=== PATIENT | female | born 1970 | race Caucasian/White ===

== ENCOUNTER 2018-01-07 15:35 | Emergency (ER) | payer MEDICARE ==
[2018-01-07 15:52] VITALS: BP 128/79
--- NOTE | 2018-01-07 17:35 | EDM.PDOC ---
ED HPI GENERAL MEDICAL PROBLEM - General Chief Complaint: [employer] Problem Stated Complaint: PASSING BLOOD CLOTS Time Seen by Provider: 01/07/18 17:06 Source of Information: Reports: Patient History Limitations: Reports: No Limitations - History of Present Illness INITIAL COMMENTS - FREE TEXT/NARRATIVE: Reporting a three-week history of vaginal bleeding with clots. Patient states that her period started on December 19 and continued on for 2 weeks until January 02 when it slowed. She had a couple of days of spotting and then the bleeding continued and today was very heavy going to 7 tampons and still running through at the time of presentation. She is sexually active not on control. Her last delivery was 5-1/2 years ago and since that time her periods have been regular. She reports some cramping. No dysuria, abdominal pain, lightheadedness. She has had quite a bit of night sweats and increased moodiness of late. pelvic Pain Score (Numeric/FACES): 4 - Related Data Allergies Allergy/AdvReac Type Severity Reaction Status Date / Time Tetanus Vaccines and Toxoid Allergy Swelling Verified 01/07/18 15:52 [Tetanus Vaccines & Toxoid] tolterodine tartrate Allergy Rash Verified 01/07/18 15:52 [From Detrol] morphine Allergy Vomiting Uncoded 01/07/18 15:52 Home Meds: Home Meds azaTHIOprine [Azathioprine] 100 mg PO DAILY 05/31/15 [History] medroxyPROGESTERone [Provera] 10 mg PO DAILY #10 tab 01/07/18 [Rx] Past Medical History HEENT History: Reports: Impaired Vision Gastrointestinal History: Reports: Other (See Below) Other Gastrointestinal History: Chrohns Genitourinary History: Reports: Urinary Incontinence Neurological History: Reports: Migraines Other Oncologic History: precancerous cells in cervix Dermatologic History: Reports: Eczema Other Dermatologic History: mild ezcema - Past Surgical History GI Surgical History: Reports: Appendectomy, Other (See Below) Other GI Surgeries/Procedures: Bowel Resection Other Female Surgeries/Procedures: laser conization Musculoskeletal Surgical History: Reports: Other (See Below) Other Musculoskeletal Surgeries/Procedures:: Lumbar Fusion L5S1 Social & Family History - Family History Family Medical History: Noncontributory - Tobacco Use Smoking Status *Q: Never Smoker Used Tobacco, but Quit: Yes Month/Year Tobacco Last Used: Jun 2114 Second Hand Smoke Exposure: No - Caffeine Use Caffeine Use: Reports: Coffee, Soda - Alcohol Use Days Per Week of Alcohol Use: 0 - Recreational Drug Use Recreational Drug Use: No ED ROS GENERAL - Review of Systems Review Of Systems: ROS reveals no pertinent complaints other than HPI. ED EXAM, GI/ABD - Physical Exam Exam: See Below Exam Limited By: No Limitations General Appearance: Alert, No Apparent Distress Ears: Normal External Exam Nose: Normal Inspection Throat/Mouth: Normal Inspection Head: Atraumatic, Normocephalic Neck: Normal Inspection Respiratory/Chest: No Respiratory Distress, Lungs Clear, Normal Breath Sounds, No Accessory Muscle Use Cardiovascular: Normal Peripheral Pulses, Regular Rate, Rhythm, No Murmur GI/Abdominal Exam: Soft, No Distention, Other (Pelvic tenderness) Back Exam: Normal Inspection Extremities: Normal Inspection Neurological: Alert, Oriented Psychiatric: Normal Affect, Normal Mood Skin Exam: Warm, Dry, Intact, Normal Color, No Rash Lymphatic: No Adenopathy Course - Vital Signs Last Recorded V/S: Last Vital Signs Temp 36.3 C 01/07/18 15:48 Pulse 78 01/07/18 15:48 Resp 16 01/07/18 15:48 BP 128/79 01/07/18 15:48 Pulse Ox 98 01/07/18 15:48 - Orders/Labs/Meds Orders: Active Orders 24 hr Category Date Time Status HCG QUALITATIVE,URINE [URCHEM] Stat Lab 01/07/18 17:27 Ordered UA W/MICROSCOPIC [URIN] Stat Lab 01/07/18 17:23 Ordered Labs: Laboratory Tests 01/07/18 01/07/18 01/07/18 Range/Units 17:23 17:27 17:31 WBC 7.40 (4.0-11.0) K/uL RBC 4.26 L (4.30-5.90) M/uL Hgb 12.3 (12.0-16.0) g/dL Hct 36.4 (36.0-46.0) % MCV 85.4 (80.0-98.0) fL MCH 28.9 (27.0-32.0) pg MCHC 33.8 (31.0-37.0) g/dL RDW Std Deviation 43.7 (28.0-62.0) fl RDW Coeff of Eldon 14 (11.0-15.0) % Plt Count 249 (150-400) K/uL MPV 10.00 (7.40-12.00) fL Neut % (Auto) 71.5 (48.0-80.0) % Lymph % (Auto) 21.8 (16.0-40.0) % Brule % (Auto) 5.8 (0.0-15.0) % Eos % (Auto) 0.8 (0.0-7.0) % Baso % (Auto) 0.1 (0.0-1.5) % Neut # (Auto) 5.3 (1.4-5.7) K/uL Lymph # (Auto) 1.6 (0.6-2.4) K/uL Brule # (Auto) 0.4 (0.0-0.8) K/uL Eos # (Auto) 0.1 (0.0-0.7) K/uL Baso # (Auto) 0.0 (0.0-0.1) K/uL Nucleated RBC % 0.0 /100WBC Nucleated RBCs # 0 K/uL Urine Color YELLOW Urine Appearance CLEAR Urine pH 6.0 (5.0-8.0) Ur Specific [place] 1.020 (1.001-1.035) Urine Protein NEGATIVE (NEGATIVE) mg/dL Urine Glucose (UA) NEGATIVE (NEGATIVE) mg/dL Urine Ketones NEGATIVE (NEGATIVE) mg/dL Urine Occult Blood MODERATE (NEGATIVE) Urine Nitrite NEGATIVE (NEGATIVE) Urine Bilirubin NEGATIVE (NEGATIVE) Urine Urobilinogen 0.2 (<2.0) EU/dL Ur Leukocyte Esterase NEGATIVE (NEGATIVE) Urine RBC 0-1 (0-2/HPF) Urine WBC 0-1 (0-5/HPF) Ur Epithelial Cells OCCASIONAL (NONE-FEW) Urine Bacteria RARE (NEGATIVE) Urine HCG, Qual NEGATIVE (NEGATIVE) Departure - Departure Time of Disposition: 18:19 Disposition: Home, Self-Care 01 Condition: Good Clinical Impression: Abnormal uterine bleeding - Discharge Information Prescriptions: medroxyPROGESTERone [Provera] 10 mg PO DAILY #10 tab Referrals: PCP,Unknown [Primary Care Provider] - Forms: ED Department Discharge Additional Instructions: 1. Follow-up in gynecology on as previously scheduled 2. Take her Provera once daily starting today
== END 2018-01-07 18:30 | disposition home or self-care (01) ==
LOC: MW.ED 15:35
DX: N93.9 Abnormal uterine and vaginal bleeding, unspecified (principal); Z88.5 Allergy status to narcotic agent; Z88.8 Allergy status to other drugs, medicaments and biological substances; Z88.7 Allergy status to serum and vaccine; Z79.899 Other long term (current) drug therapy; Z87.891 Personal history of nicotine dependence
CPT/HCPCS: 36415; 81001; 81025; 85025; 99283

== ENCOUNTER 2018-12-12 21:27 | Emergency (ER) | payer MEDICARE ==
--- NOTE | 2018-12-12 21:29 | EDM.PDOC ---
ED HPI GENERAL MEDICAL PROBLEM - General Stated Complaint: BIG TOE ON LT FOOT HURTS Time Seen by Provider: 12/12/18 21:29 Source of Information: Reports: Patient - History of Present Illness INITIAL COMMENTS - FREE TEXT/NARRATIVE: HISTORY AND PHYSICAL: History of present illness: [Patient presents with complaint of toe pain after a picture fell off the wall landing on her right great toe pain is 5 out of 10 nonradiating there is bruising over the dorsum of the toe no fever nausea vomiting chills sweats no other injury per parient ] Review of systems: As per history of present illness and below otherwise all systems reviewed and negative. Past medical history: As per history of present illness and as reviewed below otherwise noncontributory. Surgical history: As per history of present illness and as reviewed below otherwise noncontributory. Social history: No reported history of drug or alcohol abuse. Family history: As per history of present illness and as reviewed below otherwise noncontributory. Physical exam: HEENT: Atraumatic, normocephalic, pupils reactive, negative for conjunctival pallor or scleral icterus, mucous membranes moist, throat clear, neck supple, nontender, trachea midline. Lungs: Clear to auscultation, breath sounds equal bilaterally, chest nontender. Heart: S1S2, regular, negative for clicks, rubs, or JVD. Abdomen: Soft, nondistended, nontender. Negative for masses or hepatosplenomegaly. Negative for costovertebral tenderness. Pelvis: Stable nontender. Genitourinary: Deferred. Rectal: Deferred. Extremities: Atraumatic, negative for cords or calf pain. Neurovascular unremarkable. Neuro: Awake, alert, oriented. Cranial nerves II through XII unremarkable. Cerebellum unremarkable. Motor and sensory unremarkable throughout. Exam nonfocal. Diagnostics: [Plain film right great toe] Therapeutics: [Postop shoe Rest ice ibuprofen ] Impression: right great toe pain/injury Definitive disposition and diagnosis as appropriate pending reevaluation and review of above. right foot Pain Score (Numeric/FACES): 4 - Related Data Allergies Allergy/AdvReac Type Severity Reaction Status Date / Time Tetanus Vaccines and Toxoid Allergy Swelling Verified 12/12/18 21:37 [Tetanus Vaccines & Toxoid] tolterodine tartrate Allergy Rash Verified 12/12/18 21:37 [From Detrol] morphine Allergy Vomiting Uncoded 12/12/18 21:37 Home Meds: Home Meds azaTHIOprine [Azathioprine] 100 mg PO DAILY 05/31/15 [History] medroxyPROGESTERone [Provera] 10 mg PO DAILY #10 tab 01/07/18 [Rx] Past Medical History HEENT History: Reports: Impaired Vision Gastrointestinal History: Reports: Other (See Below) Other Gastrointestinal History: Chrohns Genitourinary History: Reports: Urinary Incontinence Neurological History: Reports: Migraines Other Oncologic History: precancerous cells in cervix Dermatologic History: Reports: Eczema Other Dermatologic History: mild ezcema - Past Surgical History GI Surgical History: Reports: Appendectomy, Other (See Below) Other GI Surgeries/Procedures: Bowel Resection Other Female Surgeries/Procedures: laser conization Musculoskeletal Surgical History: Reports: Other (See Below) Other Musculoskeletal Surgeries/Procedures:: Lumbar Fusion L5S1 Social & Family History - Family History Family Medical History: Noncontributory - Caffeine Use Caffeine Use: Reports: Coffee, Soda ED ROS GENERAL - Review of Systems Review Of Systems: See Below ED EXAM, GENERAL - Physical Exam Exam: See Below Course - Vital Signs Last Recorded V/S: Last Vital Signs Temp 97 F 12/12/18 21:35 Pulse 77 12/12/18 21:35 Resp 18 12/12/18 21:35 BP 115/72 12/12/18 21:35 Pulse Ox 98 12/12/18 21:35 - Orders/Labs/Meds Orders: Active Orders 24 hr Category Date Time Status Toes Great Toe Rt T5 [CR] Stat Exams 12/12/18 21:42 Taken Departure - Departure Time of Disposition: 22:13 Disposition: Home, Self-Care 01 Condition: Good Clinical Impression: Contusion, Injury of right great toe - Discharge Information Referrals: Anders Martinez MD [Primary Care Provider] - Additional Instructions: Postop shoe Rest Ice 20 minute intervals 3 times daily as needed Ibuprofen 400 mg 3 times daily 7-10 days Follow-up with primary care as needed [facility] - Primary Care [address] [place] [id number] The following information is given to patients seen in the emergency department who are being discharged to home. This information is to outline your options for follow-up care. We provide all patients seen in our emergency department with a follow-up referral. The need for follow-up, as well as the timing and circumstances, are variable depending upon the specifics of your emergency department visit. If you don't have a primary care physician on staff, we will provide you with a referral. We always advise you to contact your personal physician following an emergency department visit to inform them of the circumstance of the visit and for follow-up with them and/or the need for any referrals to a consulting specialist. The emergency department will also refer you to a specialist when appropriate. This referral assures that you have the opportunity for follow-up care with a specialist. All of these measure are taken in an effort to provide you with optimal care, which includes your follow-up. Under all circumstances we always encourage you to contact your private physician who remains a resource for coordinating your care. When calling for follow-up care, please make the office aware that this follow-up is from your recent emergency room visit. If for any reason you are refused follow-up, please contact the [facility] emergency department at and asked to speak to the emergency department charge nurse. - My Orders Last 24 Hours: My Active Orders 12/12/18 21:42 Toes Great Toe Rt T5 [CR] Stat - Assessment/Plan Last 24 Hours: My Active Orders 12/12/18 21:42 Toes Great Toe Rt T5 [CR] Stat
[2018-12-12 22:22] VITALS: BP 117/61
--- NOTE | 2018-12-12 22:24 | CR ---
INDICATION: Dropped heavy object on foot TECHNIQUE: Three views right great toe COMPARISON: None FINDINGS: Bones: Alignment is normal. No fractures or bone lesions. Joint spaces: Unremarkable. Soft tissues: Unremarkable. IMPRESSION: Negative. Dictated by Arley Padgett MD @ 12/12/2018 10:23:58 PM Dictated by: Arley Padgett MD @ 12/12/2018 22:24:03 (Electronically Signed)
== END 2018-12-12 22:26 | disposition home or self-care (01) ==
LOC: MW.ED 21:27
DX: S90.111A Contusion of right great toe without damage to nail, initial encounter (principal); Z88.7 Allergy status to serum and vaccine; Z88.8 Allergy status to other drugs, medicaments and biological substances; Z88.5 Allergy status to narcotic agent; Z79.899 Other long term (current) drug therapy; W20.8XXA Other cause of strike by thrown, projected or falling object, initial encounter
CPT/HCPCS: 73660-26-T5; 73660-T5; 99283; 99283-25